=== PATIENT | male | born 1935 | race Caucasian/White ===

== ENCOUNTER 2023-02-13 13:31 | Outpatient (CLI) | payer MEDICARE, OTHER | END 2023-02-13 13:32 | disposition home or self-care (01) | LOC: RAD 13:31 | PROVIDERS: ATTEND Internal Medicine Critical Care Medicine | DX: R06.00 Dyspnea, unspecified (principal); R91.8 Other nonspecific abnormal finding of lung field | CPT/HCPCS: 71046 ==